=== PATIENT | male | born 1950 | race Two or more races ===

== ENCOUNTER 2023-04-09 05:14 | Emergency (ER) | payer OTHER, MEDICAID ==
[~2023-04-09] VITALS: Ht 170.2 cm; Wt 88.9 kg
[2023-04-09 05:15] VITALS: BP 150/99; PULSE 116; RESP 20; TEMP 98.2; O2SAT 97
[2023-04-09 06:56] LABS: Urine Bacteria FEW /hpf (None Seen); Urine Blood 1+ /uL (Negative); Urine Clarity Clear (Clear); Urine Color Colorless (Yellow); Urine Protein, UAD Negative (Negative); Urine Urobilinogen Normal (Negative); Urine WBC 1 /hpf (0 - 3); Urine pH 5.5 (5.0-8.0)
[2023-04-09] MEDS ORDERED: TAMS-35 PO (07:10)
== END 2023-04-09 07:36 | disposition home or self-care (01) ==
LOC: ER 05:14
DX: R33.9 Retention of urine, unspecified (principal)
CPT/HCPCS: 51702; 81001

== ENCOUNTER 2023-04-20 09:45 | Emergency (ER) | payer OTHER, MEDICAID ==
[~2023-04-20] VITALS: Ht 170.2 cm; Wt 87.6 kg
[~2023-04-20 09:45] MED LIST: TAMS-35 PO
[2023-04-20 12:42] LABS: Urine Bacteria MOD /hpf (None Seen); Urine Blood 3+ /uL (Negative); Urine Clarity CLOUDY (Clear); Urine Color Yellow (Yellow); Urine Protein, UAD 1+ (Negative); Urine Specific Gravity 1.016 (1.001-1.035); Urine Urobilinogen Normal (Negative); Urine WBC 1134 /hpf (0 - 3); Urine WBC Clumps PRESENT /hpf (None Seen)
[2023-04-20] MEDS ORDERED: CEPH250C PO (14:09)
[2023-04-20 14:45] VITALS: BP 144/79; PULSE 77; RESP 16; TEMP 98.2; O2SAT 100
== END 2023-04-20 14:47 | disposition home or self-care (01) ==
LOC: ER 09:45
DX: N39.0 Urinary tract infection, site not specified (principal); R33.9 Retention of urine, unspecified; Z96.0 Presence of urogenital implants
CPT/HCPCS: 51702; 81001